=== PATIENT | female | born 1985 | race African-American/Black ===

== ENCOUNTER 2019-09-25 13:11 | Inpatient (IN) | payer MEDICAID ==
[~2019-09-25] VITALS: Ht 175.3 cm; Wt 131.5 kg
[~2019-09-25 13:11] MED LIST: ASPI-1497 PO; LOV120 SUBCUT; WARF10TA44 PO
[2019-09-25 16:24] LABS: CLARITY URINE CLEAR (CLEAR); COLOR URINE YELLOW (YELLOW); KETONES URINE NEGATIVE (NEGATIVE); LEUKOCYTE ESTERASE URINE NEGATIVE (NEGATIVE); NITRITE URINE NEGATIVE (NEGATIVE); OCCULT BLOOD URINE 3+ (NEGATIVE); PROTEIN URINE NEGATIVE (NEGATIVE); SPECIFIC GRAVITY URINE 1.022 (1.005-1.030)
[2019-09-25] MEDS ORDERED: ASPIRIN 81MG TABLET PO ONE (16:30)
[2019-09-25] MEDS ORDERED: VISCOUS LIDOCAINE 2% 15 ML UDC PO ONE (16:30)
[2019-09-25] MEDS ORDERED: MAGNESIUM/ALUMINUM HYDROXIDE/SIMETHICONE 30ML UDC PO ONE (16:30)
[2019-09-25 17:08] LABS: BASOPHILS % 0.6 % (0.0-2.0); EOSINOPHILS % 0.5 % (0.0-5.0); HEMATOCRIT. 40.7 % (36.0-48.0); HEMOGLOBIN. 13.1 g/dL (12.0-16.0); LYMPHOCYTES % 29.2 % (20.0-50.0); MEAN CORPUSCULAR HEMOGLOBIN 24.6 pg (28.0-32.0); MEAN CORPUSCULAR VOLUME 76.4 fL (81.0-99.0); MEAN PLATELET VOLUME 8.7 fl (7.4-10.4); MONOCYTES % 7.7 % (2.0-8.0); PLATELET 214 x1000/uL (130-400); RED BLOOD CELL COUNT 5.33 mill/uL (4.2-5.4); RED CELL DISTRIBUTION WIDTH 18.1 % (11.6-14.6)
[2019-09-25 17:11] LABS: CHLORIDE 110 mEq/L (98-107)
[2019-09-25] MEDS ORDERED: GUAIFENESIN 200MG/10ML SUGAR FREE UDC PO PRN (19:45)
[2019-09-25] MEDS ORDERED: ONDANSETRON HCL 4MG/2ML INJ IV PRN (19:45)
[2019-09-25] MEDS ORDERED: HYDROCODONE/ACETAMINOPHEN 5/325MG TABLET PO PRN (19:45)
[2019-09-25] MEDS ORDERED: MORPHINE SULFATE 2 MG/ML CPJ (NOT FOR IM USE) IV PRN (19:45)
[2019-09-25] MEDS ORDERED: CLONIDINE 0.1MG TABLET PO PRN (19:45)
[2019-09-25 21:45] VITALS: BP 114/73
[2019-09-25] MEDS: ACETAMINOPHEN 325MG TABLET PO PRN (22:58)
[2019-09-25] MEDS: ENOXAPARIN 30MG/0.3ML SYR SUBCUT SCH (22:58)
[2019-09-25 23:37] LABS: CREATINE KINASE 84 IU/L (26-192)
[2019-09-25 23:39] LABS: CREATINE KINASE MB FRACTION < 1.0 ng/mL (0.5-3.6)
[2019-09-26] VITALS: BP 104/67
[2019-09-26 04:00] VITALS: BP 102/57
[2019-09-26 06:10] LABS: BASOPHILS % 0.5 % (0.0-2.0); EOSINOPHILS % 0.9 % (0.0-5.0); HEMATOCRIT. 35.4 % (36.0-48.0); HEMOGLOBIN. 11.4 g/dL (12.0-16.0); LYMPHOCYTES % 33.4 % (20.0-50.0); MEAN CORPUSCULAR HEMOGLOBIN 24.3 pg (28.0-32.0); MEAN CORPUSCULAR VOLUME 75.6 fL (81.0-99.0); MEAN PLATELET VOLUME 8.8 fl (7.4-10.4); NEUTROPHILS % 56.2 % (40.0-76.0); PLATELET 233 x1000/uL (130-400); RED BLOOD CELL COUNT 4.69 mill/uL (4.2-5.4)
[2019-09-26 06:12] LABS: CHLORIDE 111 mEq/L (98-107)
[2019-09-26 06:23] LABS: CREATINE KINASE 79 IU/L (26-192); HDL CHOLESTEROL 33 mg/dL (40-59); LDL CHOLESTEROL 100 mg/dL (5-100)
[2019-09-26 06:28] LABS: CREATINE KINASE MB FRACTION < 1.0 ng/mL (0.5-3.6)
[2019-09-26 08:00] VITALS: BP 96/56
[2019-09-26] MEDS: AMLODIPINE 10MG TABLET PO SCH (09:00)
[2019-09-26] MEDS: ENOXAPARIN 30MG/0.3ML SYR SUBCUT SCH ×2 (09:04→21:19)
[2019-09-26] MEDS: ACETAMINOPHEN 325MG TABLET PO PRN ×2 (09:04→19:25)
[2019-09-26] MEDS: DOCUSATE SODIUM 100MG CAPSULE PO PRN (09:04)
[2019-09-26 12:00] VITALS: BP 109/64
[2019-09-26 15:51] LABS: PROTHROMBIN TIME 10.7 sec (9.6-11.0)
[2019-09-26 16:00] VITALS: BP 104/52
[2019-09-26] MEDS ORDERED: WARFARIN SODIUM 7.5MG TABLET PO NR (18:00)
[2019-09-26 20:00] VITALS: BP 118/59
[2019-09-27] VITALS: BP 99/54
[2019-09-27 04:00] VITALS: BP 98/50
[2019-09-27 06:52] LABS: INR 1.1; PROTHROMBIN TIME 10.9 sec (9.6-11.0)
[2019-09-27 08:00] VITALS: BP 112/61
[2019-09-27] MEDS: DOCUSATE SODIUM 100MG CAPSULE PO PRN (09:00)
[2019-09-27] MEDS: AMLODIPINE 10MG TABLET PO SCH (09:00)
[2019-09-27] MEDS: ENOXAPARIN 30MG/0.3ML SYR SUBCUT SCH (09:01)
[2019-09-27 12:00] VITALS: BP 99/55
[2019-09-27 14:16] VITALS: BP 99/55
[2019-09-27] MEDS ORDERED: WARFARIN SODIUM 7.5MG TABLET PO NR (18:00)
== END 2019-09-27 15:47 | disposition home or self-care (01) | DRG 243 ==
LOC: ER 13:31 → 7WST 18:13 → EDBEDREQ 18:14 → ENRESERV 19:51
PROVIDERS: ADMIT Hospitalist; ATTEND Hospitalist
DX: K21.9 Gastro-esophageal reflux disease without esophagitis (principal); D68.59 Other primary thrombophilia; E78.5 Hyperlipidemia, unspecified; R10.10 Upper abdominal pain, unspecified; I10 Essential (primary) hypertension; Z79.01 Long term (current) use of anticoagulants; Z95.0 Presence of cardiac pacemaker; Z95.2 Presence of prosthetic heart valve; Z86.79 Personal history of other diseases of the circulatory system; Z91.14 Patient's other noncompliance with medication regimen; Z79.899 Other long term (current) drug therapy; Z79.82 Long term (current) use of aspirin
CPT/HCPCS: 36415; 71045; 74176; 80053; 80061; 81003; 82550; 82553; 83880; 84484; 85025; 93005; 93306; 93970; 99285; J1650

== ENCOUNTER 2023-03-27 15:19 | Emergency (ER) | payer MEDICAID | END 2023-03-27 16:45 | disposition left against medical advice (07) | LOC: ER 15:19 | DX: Z53.21 Procedure and treatment not carried out due to patient leaving prior to being seen by health care provider (principal) | CPT/HCPCS: 99281 ==